=== PATIENT | male | born 1945 | race Caucasian/White ===

== ENCOUNTER → 2023-02-21 | Outpatient (CLI) | payer MEDICARE ==
--- NOTE | 2023-02-21 14:24 | XR ---
EXAMINATION TYPE: XR knee complete LT DATE OF EXAM: 02/21/2023 COMPARISON: NONE HISTORY: Pain TECHNIQUE: 3 views of the left knee are submitted for evaluation. FINDINGS: There is no evidence for fracture or dislocation. No joint effusion. No significant joint s pace narrowing or spurring noted. Soft tissues are within normal limits. Vascular sclerosis. IMPRESSION: No evidence for acute fracture or dislocation.
== END | disposition home or self-care (01) ==
LOC: RADXRYALE 14:05
PROVIDERS: ATTEND Physician Assistant
DX: M25.562 Pain in left knee (principal)

== ENCOUNTER → 2023-08-05 | Outpatient (CLI) | payer MEDICARE ==
--- NOTE | 2023-08-05 14:33 | CT ---
EXAMINATION TYPE: CT brain wo con DATE OF EXAM: 08/05/2023 COMPARISON: None INDICATION: Concussion, Contusion DLP: 1227 mGycm, Automated exposure control for dose reduction was used. CONTRAST: None CT of the brain is performed utilizing 3 mm thick sections through the posterior fossa and 3 mm thick sections through the remaining calvarium. Study is performed within 24 hours of arrival to the [facility]. No abnormal hyperdensity is present to suggest an acute intracranial hemorrhage. No mass lesion is evident. No acute infarcts are evident. Ventricles and sulci are appropriate for the patient age. Paranasal sinuses and mastoid air cells within the [id number] are clear. IMPRESSION: 1. No acute intracranial process. Follow-up MRI can be performed as clinically indicated.
== END | disposition home or self-care (01) ==
LOC: RADCTMAIN 13:15
PROVIDERS: ATTEND Family Medicine
DX: S06.0X0D Concussion without loss of consciousness, subsequent encounter (principal); S00.93XD Contusion of unspecified part of head, subsequent encounter; X58.XXXD Exposure to other specified factors, subsequent encounter
CPT/HCPCS: 70450